=== PATIENT | male | born 1945 | race Caucasian/White ===

== ENCOUNTER 2017-11-27 07:25 | Inpatient (IN) | payer OTHER ==
[2017-11-15 09:33] LABS: HEMATOCRIT 45.7 % (42.0-52.0); HEMOGLOBIN 15.2 gm/dL (14.0-18.0); MCH 30.9 pg (26.0-34.0); MCHC 33.3 g/dL (28.0-37.0); MCV 92.9 fL (80.0-100.0); MPV 8.2 fl. (7.2-11.1); RBC 4.93 mil/uL (4.50-6.00); RDW-CV 15.3 % (10.5-14.5); WBC 4.6 thou/uL (4.0-11.0)
[2017-11-15 09:37] LABS: INR 1.3; PROTIME 12.4 Seconds (9.20-11.50)
[2017-11-15 09:41] LABS: ALBUMIN 3.6 g/dL (3.4-5.0); CALCIUM 8.8 mg/dL (8.5-10.1); POTASSIUM 3.8 mmol/L (3.5-5.1); TOTAL BILIRUBIN 0.6 mg/dL (<0.1-1.0); TOTAL PROTEIN 6.6 g/dL (6.4-8.2)
[2017-11-15 10:13] LABS: URINE BILIRUBIN NEGATIVE (Negative); URINE BLOOD NEGATIVE (Negative); URINE CLARITY CLEAR; URINE COLOR YELLOW; URINE GLUCOSE-RANDOM NEGATIVE (Negative); URINE KETONES NEGATIVE (Negative); URINE LEUKOCYTES-REFLEX NEGATIVE (Negative); URINE NITRITE-REFLEX NEGATIVE (Negative); URINE PROTEIN NEGATIVE (Negative); URINE SPECIFIC GRAVITY 1.025 (1.005-1.030); URINE UROBILINOGEN 0.2 E.U./dl (0.2-1.0)
--- NOTE | 2017-11-15 16:37 | EKG ---
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: : 1945 Requested By: Dutch Proctor Order Number: [id number] Reading : Chaim Robbins Measurements Intervals [place] Rate: 79 P: 54 IA: 274 QRS: -71 QRSD: 146 T: 71 QT: 451 QTc: 518 Interpretive Statements Sinus rhythm Atrial premature complex Prolonged IA interval Right bundle branch block Inferior infarct, old No previous ECG available for comparison Electronically Signed On 11-15-2017 16:36:53 CDT by Chaim Robbins [email or web address] <ELECTRONICALLY SIGNED> By: Chaim Robbins MD, [facility] 11/15/17 1636 [id number] [id number] Chaim Robbins MD, FACC /EPI
[~2017-11-27] VITALS: Ht 177.8 cm; Wt 95.3 kg
[~2017-11-27 07:25] MED LIST: AVAPRO 150 MG150 MG PO; COREG6.25 MG PO; DOXYCYCLINE PO; LUNESTA3 MG PO; NORTRIPTYLINE H10 M2 PO; TIKOSYN500 MCG PO; ULTRAM 50MG TAB50 MG PO; VICTOZA0.6 MG/0.1 SUBQ
[2017-11-27 09:44] VITALS: BP 110/66
[2017-11-27 12:40] VITALS: BP 129/75
--- NOTE | 2017-11-27 12:49 | NUR ---
PATIENT ARRIVED TO UNIT AT 1220. ALERT AND ORIENTED X4. REQUESTING PAIN MEDICATION UPON ARRIVAL TO UNIT, PAIN MEDICATION GIVEN. DENIES NAUSEA. IV PATENT AND INFUSING. POLAR PACK IN PLACE. SHANNON HOSE IN PLACE ON LEFT LEG. YELENA WRAP ON RIGHT KNEE C/D/I. CAP-NO IN PLACE PATIENT HAS BEEN ORIENTED TO ROOM. VSS ON 3L O2. CALL LIGHT IS WITHIN REACH. NURSING WILL CONTINUE TO MONITOR.
--- NOTE | 2017-11-27 15:31 | NUR ---
ASSUMED CARE OF PATIENT AT THIS TIME. REFUSING CAPNO AND O2. SAT 94% ON RA. ALERT AND ORIENTED. IMPULSIVE. DENIES PAIN. VOIDING PER URINAL. DRESSING DRY AND INTACT. CHAIR ALARM IN USE. PATIENT TRIES TO GET OUT OF CHAIR ALONE. EDUCATED SEVERAL TIMES. CALL LIGHT WITHIN REACH. WILL CONTINUE TO MONITOR.
--- NOTE | 2017-11-27 15:49 | NUR ---
ALERT AND ORIENTED X4. UP WITH ASSIST OF 1 WITH WALKER AND GAIT BELT. IV IS PATENT AND INFUSING. PAIN BEING MANAGED WITH PO PAIN MEDICATION. DENIES NAUSEA. PATIENT REFUSING CAP-NO AT THIS TIME. PATIENT IS NON-COMPLIANT WITH FALL PRECAUTIONS, EDUCATED MULTIPLE TIMES. CHAIR ALARM IS ON. DRESSING C/D/I. POLAR CARE IN PLACE. VSS ON ROOM AIR. HOURLY ROUNDS HAVE BEEN MAINTAINED THROUGOUT SHIFT. CALL LIGHT IS WITHIN REACH NURSING WILL CONTINUE TO MONITOR.
[2017-11-27 16:18] VITALS: BP 121/62
--- NOTE | 2017-11-27 17:29 | NUR ---
PATIENT REMAINS ALERT AND ORIENTED. IMPULSIVE. DENIES PAIN. IVF INFUSING ORDERED. DRESSING TO KNEE DRY AND INTACT. UP TO CHAIR. VOIDED PER URINAL. TOLERATED DINNER. EDUCATED ON FALL PREVENTION. BED/CHAIR ALARM IN USE. CALL LIGHT WITHIN REACH. WILL CONTINUE TO MONITOR.
--- NOTE | 2017-11-27 17:46 | NUR ---
RECIEVED O.T. EVAL AND TX ORDER. WILL DEFER TO P.T. AND NURSING. PLEASE ORDER FURTHER O.T. SERVICES IF NEEDED.
[2017-11-27 20:20] VITALS: BP 123/63
[2017-11-28 01:01] VITALS: BP 145/75
[2017-11-28 04:36] LABS: HEMATOCRIT 40.7 % (42.0-52.0); HEMOGLOBIN 13.5 gm/dL (14.0-18.0)
[2017-11-28 04:40] VITALS: BP 162/83
--- NOTE | 2017-11-28 04:59 | NUR ---
PATIENT HAS REMAINED ALERT AND ORIENTED X 4 THROUGHOUT THE SHIFT AND RESTING AT INTERVALS ON HOURLY ROUNDS. PAIN CONTROL WITH MODERATE SUCCESS USING BOTH ORAL AND IV MEDS. ALSO PROVIDED AMBIEN FOR SLEEP AT PATIENT REQUEST. DRESSING RIGHT KNEE CLEAN AND DRY WITH HEMOVAC PRESENT. CPM INITIATED AT HS TO FAIR TOLERENCE. STANDING AT BEDSIDE TO VOID IN ADEQUATE AMOUNTS. STATED DID PASS SOME GAS. UP IN CHAIR X 2 DURING THE NIGHT. TRANSFER WITH GAIT BELT, WALKER AND MIN ASSIST WITH VERBAL CUEING FOR TECHNIQUE AND SAFETY. PATIENT REFUSING CAPNOGRAPHY DUE TO IRRITATING CANNULA. SWITCHED TO PULSE OXIMETRY. O2 ON AT 2L/MIN. VITAL SIGNS STABLE. BED AND CHAIR ALARMS UTILIZED FOR SAFETY. CONTINUE TO MONITOR.
[2017-11-28 08:05] VITALS: BP 148/62
--- NOTE | 2017-11-28 13:25 | NUR ---
Nutrition: Pt seen for nursing risk 2 points. Regular diet. BG 174, albumin 3.6. Wt: 210#. Admitted for Rt knee DJD. Pt asleep at time of visit. Appears nutritionally stable at this time. Likely discharge tomorrow. Low risk.
--- NOTE | 2017-11-28 16:08 | NUR ---
PATIENT REMAINS ALERT AND ORIENTED. SLIGHTLY IMPULSIVE. PAIN CONTROLLED WITH HYDROCODONE,OXYIR,AND MORPHINE. PATIENT PLANS TO DC HOME TOMORROW. DRESSING TO KNEE DRY AND INTACT. HEMOVAC PULLED. POLAR CARE IN PLACE. LEFT SHANNON IN PLACE. TRANSFERS AND AMBULATES WITH ASSIST OF 1, GAIT BELT AND WALKER. RA ST 94%. BED/CHAIR ALARM IN USE. CALL LIGHT WITHIN REACH. WILL CONTINUE TO MONITOR.
[2017-11-28 16:15] VITALS: BP 141/73
[2017-11-28 20:40] VITALS: BP 144/63
[2017-11-28 23:52] VITALS: BP 133/73
[2017-11-29 04:00] VITALS: BP 142/76
[2017-11-29 04:36] LABS: HEMATOCRIT 40.1 % (42.0-52.0); HEMOGLOBIN 13.5 gm/dL (14.0-18.0)
--- NOTE | 2017-11-29 06:59 | NUR ---
PATIENT ALERT AND ORIENTED X 4. VITALS STABLE. RA. IMPULSIVE AT TIMES. RIGHT KNEE DRESSING C/D/I. SLEPT COMFORTABLY DURING THE NIGHT. UP WITH ASSIST X 1. PAIN CONTROLLED WITH PO MEDICATION. VOIDS PER URINAL. HOURLY ROUNDS. BED ALARM IN USE. NURSING WILL CONTINUE TO MONITOR.
[2017-11-29 09:00] VITALS: BP 149/76
--- NOTE | 2017-11-29 11:52 | EKG ---
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28 : 1945 Requested By: Troy Kumar Order Number: [id number] Yahir MD: Ibrahima Patel Measurements Intervals [place] Rate: 102 P: 159 PA: 144 QRS: -76 QRSD: 150 T: 38 QT: 428 QTc: 558 Interpretive Statements Sinus or ectopic atrial tachycardia Atrial premature complex Probable left atrial enlargement Right bundle branch block Inferior infarct, old Baseline wander in lead(s) II,III,aVF,V2,V5 Compared to ECG 11/15/2017 09:41:13 Sinus rhythm no longer present First degree AV block no longer present Myocardial infarct finding still present Electronically Signed On 11-29-2017 11:52:50 CDT by Ibrahima Patel [email or web address] <ELECTRONICALLY SIGNED> By: Ibrahima Patel MD, [facility] 11/29/17 1152 0945 Ibrahima Patel MD, [facility] /EPI
--- NOTE | 2017-11-29 12:29 | NUR ---
SPOKE WITH PT.ABOUT DISCHARGE PLANNING. HE HOPES TO GO HOME TODAY. HE LIVES ALONE BUT SAID HIS DAUGHTER COULD STAY WITH HIM FOR A COUPLE OF DAYS IF NEEDED. EXPLAINED THE RECOMMENDATION OF 2-3 DAYS OF HAVING SOMEONE THERE 24 HRS/DAY. PT.SAID HE IS NORMALLY INDEPENDENT WITH EVERYTHING. HE WILL NEED A WALKER. DISCUSSED COPAY OF $18 FOR HIS XARELTO PRESCRIPTION AT HIS PHARMACY. WAS CALLED IN WRITTEN YESTERDAY. HE SAID THAT WAS FINE. DISCUSSED HH VS OUTPT.THERAPY. HE WOULD LIKE HH INITIALLY HE WOULD NOT HAVE A RIDE FOR OUTPT. HE CHOSE [facility]. MADE REFERRAL TO [facility]. WILL FAX DISCHARGE ORDERS WHEN WRITTEN.
--- NOTE | 2017-11-29 13:02 | NUR ---
ASSUMED CARES OF PT AT 0700. PT IN BED, BED IN LOW LOCKED POSITION. CALL BUTTON AND PERSONAL ITEMS IN PT REACH. PT UP ONE ASSIST WITH WALKER AND GB. VSS ON RA, OCC. TACHYCARDIC, AFEBRILE, PERRLA, SKIN INTACT, RIGHT KNEE SURGICAL INCISION COVERED WITH MEPILEX, C/D/I. HOURLY ROUNDING AND ACCU CHECKS CONTINUE. TREATING PT FOR CONSTIPATION, PT REPORTS HE IS PASSING GAS. ABD SOUND ACTIVE 4 QUADRANTS. LEFT HAND IV 2O GAUGE PATENT TO FLUSH/SALINE LOCKED. PT A&O X4, TALKATIVE, COOPERATIVE. LUNGS CLEAR UPPER LOBES, COARSE LOWER LOBES, INSTRUCTED AND EDUCATED ON USING INCENTIVE SPIROMETER EVERY COMMERCIAL/10 TIMES PER HOUR. WILL CONTINUE TO MONITOR PT PROGRESS AND STATUS, PAIN AND CONSTIPATION.
[2017-11-29] MEDS ORDERED: PERCOCET PO (13:24)
[2017-11-29] MEDS ORDERED: XARELTO10 MG PO (13:27)
[2017-11-29 13:35] VITALS: BP 149/76
[2017-11-29 13:54] VITALS: BP 149/76
[2017-11-29 16:23] VITALS: BP 149/76
--- NOTE | 2017-11-29 16:36 | NUR ---
PT CLEARED FOR DISCHARGE. PT EDUCATED ON DISCHARGE ORDERS, MEDS, STROKE INFORMATION, FOLLOW UP APPTS AND SURGICAL SITE AND DRESSING CARE. PT SIGNED DOCUMENT. PRESCRIPTIONS GIVEN AND CARE EDUCATION NOTES AND MEDICARE RIGHTS SIGNED. PT BELONGINGS PACKED AND TAKEN WITH PT ALONG WITH CPM AND POLAR PACK. IV REMOVED. PT ESCORTED VIA W/C WITH NURSING STAFF AND DAUGHTER AT SIDE TO CAR TO GO HOME WITH HOME HEALTH. HOURLY ROUNDING COMPLETED. DISCHARGE COMPLETED WITH PT STABLE, SMILING AND TALKATIVE AT 1623.
--- NOTE | 2017-12-05 09:58 | OP ---
[facility] [address] [place] [address] OPERATIVE REPORT Name: ELIZABETH GREGG Room: [address] IN M.R.#: [id number] Admission: 11/27/17 Attend Phys: Barry Decker Discharge: 11/29/17 Date of : 47 Report #: [id number] THIS REPORT FOR: //name// CC: Dutch Cruz DATE OF SERVICE: 11/27/2017 PREOPERATIVE DIAGNOSIS: Right knee osteoarthritis. POSTOPERATIVE DIAGNOSIS: Right knee osteoarthritis. PROCEDURE: Right total knee arthroplasty with Navio. SURGEON: Dutch Proctor II, DO. DIE CUTTER: MARCELLE Magaña. ANESTHESIA: General endotracheal. ESTIMATED BLOOD LOSS: 50 mL. ANTIBIOTICS: Ancef preoperatively. DRAINS: Medium Hemovac. COMPLICATIONS: None. CONDITION: The patient is stable to recovery room. IMPLANTS: Listed in the operative record and progress note BRIEF HISTORY: The patient was seen in the preoperative area. Preoperative H and P was performed. Site was marked, questions were answered. Risks and benefits were discussed in detail about surgery. The patient wished to proceed listening to all risks. OPERATIVE PROCEDURE: The patient was taken to the operative suite, placed supine on the operating table under appropriate anesthesia. A well-padded tourniquet applied to upper thigh, was inflated to 300 mmHg after gravity exsanguination. The operative knee was sterilely prepped and draped. Surgery begun by midline incision, is carried down to subcutaneous tissues. Medial parapatellar arthrotomy was performed and carried down to bone. The patella was then everted and excess osteophytes and soft tissue removed from around the femur and tibia. The Navio tracker pins were then applied in appropriate [facility] [address] [place] [address] OPERATIVE REPORT Name: ELIZABETH GREGG Room: [address] IN M.R.#: [id number] Admission: 11/27/17 Attend Phys: Barry Decker Discharge: 11/29/17 Date of : 47 Report #: [id number] fashion utilizing the bullet-tipped guide into the bone. The knee was then registered in appropriate fashion. After it was registered, the plane was performed, and the robotic assistance device was activated. Utilizing robotic assistance, the alignment for the cutting jigs was then performed. The femur was then applied, checked with rotation alignment with a drop wilbur as well as with the robotic assistance. An appropriate cut was made. The 4-in-1 cutting block was then checked with the robotic assistance. An appropriate cut was made, excess bone was removed as well as excess meniscus placed on the collateral ligaments. Tibial cutting block was applied, checked robotic assistance, pinned in appropriate position. Appropriate cut was made. Excess bone was removed from around the tibia. Tibial base plate was then applied, checked for rotation alignment with the drop wilbur as well as with robotic assistance in the prone position. The femur was then applied, and box cut was reamed. This was then trialed with appropriate space, which showed excellent fit and fill and excellent stability as well as excellent alignment utilizing robotic assistance and trackers. At this time, robotic assistive devices were removed. Three peg holes were drilled in the patella. It was then reamed in appropriate fashion, and patella was applied, checked for flexion, extension, showed excellent tracking within the groove. The trials were removed. The tibia was punched in appropriate fashion. The bones are cleansed with Pulsavac irrigation. Cement was mixed and applied to the final implants. These were then malleted in position, held the knee in extension and compressed to allow the cement to cure. After it cured, excess was removed using [place] and osteotome. Wound was then copiously irrigated, and the final spacer was then malleted in position. Tourniquet was deflated. Hemostasis was obtained with electrocautery. The pain cocktail was injected with PRP gel spray throughout the internal aspects of the knee. Medium Hemovac drain was then applied. Capsule was closed with 2 FiberWire and 1 Vicryl in [id number] fashion. Skin was closed with 2-0 Vicryl and running 3-0 Monocryl. Dermabond dressing applied. Portal sites were closed utilizing nylon. Michele wrap and PolarCare were applied. The patient transported to recovery room in stable condition. Counts were correct throughout the procedure. <ELECTRONICALLY SIGNED> By: Dutch Proctor II, DO 12/05/17 0958 [id number] Proctor II, DO /nt
== END 2017-11-29 16:23 | disposition home health service (06) | DRG 470 ==
LOC: M.ORTHSURG 07:25 → M.TBA 07:25 → M.PRE 07:57 → M.ORTHSURG 11:59 → M.PRE 13:05 → M.ORTHSURG 11-29 16:23
PROVIDERS: Orthopaedic Surgery; ADMIT Internal Medicine
PROC: 0SRC0J9 Replacement of Right Knee Joint with Synthetic Substitute, Cemented, Open Approach (ICD-10-PCS; principal; 2017-11-27)
DX: M17.11 Unilateral primary osteoarthritis, right knee (principal); I48.92 Unspecified atrial flutter; I50.22 Chronic systolic (congestive) heart failure; E11.9 Type 2 diabetes mellitus without complications; I48.0 Paroxysmal atrial fibrillation; I11.0 Hypertensive heart disease with heart failure; E78.5 Hyperlipidemia, unspecified; Z90.49 Acquired absence of other specified parts of digestive tract; Z79.899 Other long term (current) drug therapy